=== PATIENT | male | born 1985 | race Caucasian/White ===

== ENCOUNTER → 2021-04-29 | Day surgery (SDC) | payer OTHER ==
[~2021-04-29] VITALS: Ht 175.3 cm; Wt 83.5 kg
[~2021-04-29] MED LIST: AMOXICILLIN500 MG PO; FOLIC ACID1 MG PO; IBUPROFEN800 MG PO; MOTRIN600 MG PO; OMEPRAZOLE40 MG PO; PERCOCET 5-3251 EACH PO; PHENERGAN25 M1 PO; TRAZODONE 50MG50 MG PO; TYLENOL PM EX-1 EACH PO; VITAMIN D350 MC3 PO; ZOLOFT 25MG TAB25 MG PO
[2021-04-29 12:59] LABS: BASOPHIL 0.5 % (0-2); EOSINOPHIL 4.8 % (0-5); HCT 46.2 % (42.0-52.0); HGB 15.5 g/dl (13.2-18.0); LYMPHOCYTE 21.5 % (15-48); MCH 29.9 pg (25.0-31.0); MCHC 33.5 g/dL (32.0-36.0); MONOCYTE 5.2 % (0-12); MPV 9.1 fL (6.0-9.5); NEUTROPHIL 67.6 % (41-80); NRBC 0; PLT 284 K/uL (150-400); RBC 5.19 M/uL (4.70-6.00); RDW 12.8 % (11.5-14.0); WBC 16.5 K/uL (4.0-10.5)
== END | disposition home or self-care (01) ==
LOC: FAS 12:18
PROVIDERS: Oral & Maxillofacial Surgery
DX: K02.9 Dental caries, unspecified (principal); K04.7 Periapical abscess without sinus; K08.89 Other specified disorders of teeth and supporting structures; F41.9 Anxiety disorder, unspecified; K21.9 Gastro-esophageal reflux disease without esophagitis
CPT/HCPCS: D7140; D7210; 36415; 85025; J1100; J2250; J2405; J2704; J3010; J7120